=== PATIENT | male | born 1945 | race Caucasian/White ===

== ENCOUNTER 2021-10-16 09:54 | Outpatient (CLI) | payer MEDICARE | END 2021-10-16 09:55 | disposition home or self-care (01) | LOC: CT 09:54 | PROVIDERS: ATTEND Student in an Organized Health Care Education/Training Program | DX: R22.1 Localized swelling, mass and lump, neck (principal); J98.4 Other disorders of lung; C13.9 Malignant neoplasm of hypopharynx, unspecified; C77.0 Secondary and unspecified malignant neoplasm of lymph nodes of head, face and neck; Z90.2 Acquired absence of lung [part of] | CPT/HCPCS: 70491; 71260; 82565 ==

== ENCOUNTER 2021-10-16 11:42 | Outpatient (CLI) | payer MEDICARE ==
[2021-10-16 13:18] LABS: Hemoglobin 15.7 g/dL (13.5-17.5)
[2021-10-16 13:33] LABS: Anion Gap 15 mmol/L (10-20); BUN (Urea Nitrogen) 20 mg/dL (8.4-25.7); Calc. Creatinine Clearance 0 mL/min (70-130); Calcium 9.5 mg/dL (7.8-10.44); Carbon Dioxide 23 mmol/L (23-31); Chloride 106 mmol/L (98-107); Glucose 100 mg/dL (83-110); Potassium 4.6 mmol/L (3.5-5.1); Sodium 139 mmol/L (136-145)
[2021-10-18 00:05] LABS: SARS-CoV-2 PCR by NAA Not Detected (NotDetected)
== END 2021-10-16 11:43 | disposition home or self-care (01) ==
LOC: LABBT 11:42
PROVIDERS: ATTEND Student in an Organized Health Care Education/Training Program
DX: Z01.818 Encounter for other preprocedural examination (principal); R22.1 Localized swelling, mass and lump, neck; J38.7 Other diseases of larynx; J38.3 Other diseases of vocal cords; Z85.118 Personal history of other malignant neoplasm of bronchus and lung; Z20.822 Contact with and (suspected) exposure to COVID-19
CPT/HCPCS: 80048; 85014; 85018; 93005; U0003; U0005; 70491; 71260; 82565; 93010

== ENCOUNTER 2021-10-21 06:45 | Day surgery (SDC) | payer MEDICARE ==
[2021-10-20 09:25] VITALS: BMI 25.0
[2021-10-21] MEDS ORDERED: Fentanyl 100 MCG/2 ML VIAL ONE (07:23)
[2021-10-21] MEDS ORDERED: Lidocaine 1% MPF 2 ML VIAL ONE (07:29)
[2021-10-21] MEDS ORDERED: EPINEPHrine 1 MG/ML AMP ONE (07:57)
[2021-10-21] MEDS ORDERED: Acetaminophen 500 MG TAB ONE (08:07)
[2021-10-21] MEDS ORDERED: Lidocaine 1% PF 5 ML VIAL ONE (08:46)
[2021-10-21] MEDS ORDERED: Ondansetron PF 4 MG/2 ML Vial ONE (08:46)
[2021-10-21] MEDS ORDERED: Dexamethasone 20 MG/5 ML VIAL ONE (08:46)
[2021-10-21] MEDS ORDERED: Rocuronium Bromide 10 MG/ML (10ML VIAL) ONE (08:46)
[2021-10-21] MEDS ORDERED: Succinylcholine 200 MG/10 ml SYRINGE FS ONE (08:46)
[2021-10-21] MEDS ORDERED: PROPOFOL 200 MG/20 ML VIAL ONE (08:46)
[2021-10-21] MEDS ORDERED: Labetalol HCl 100 MG/20 ML VIAL ONE (09:35)
== END 2021-10-21 11:22 | disposition home or self-care (01) ==
LOC: SDC 06:45
PROVIDERS: ATTEND Student in an Organized Health Care Education/Training Program
PROC: 0DJ08ZZ Inspection of Upper Intestinal Tract, Via Natural or Artificial Opening Endoscopic (ICD-10-PCS; principal; 2021-10-21)
PROC: 0CBS8ZX Excision of Larynx, Via Natural or Artificial Opening Endoscopic, Diagnostic (ICD-10-PCS; 2021-10-21)
PROC: 07923ZX Drainage of Left Neck Lymphatic, Percutaneous Approach, Diagnostic (ICD-10-PCS; 2021-10-21)
DX: C32.3 Malignant neoplasm of laryngeal cartilage (principal); R22.1 Localized swelling, mass and lump, neck; I10 Essential (primary) hypertension; I48.91 Unspecified atrial fibrillation; F10.11 Alcohol abuse, in remission; Z85.118 Personal history of other malignant neoplasm of bronchus and lung; Z87.891 Personal history of nicotine dependence; Z79.899 Other long term (current) drug therapy; Z88.8 Allergy status to other drugs, medicaments and biological substances; Z90.2 Acquired absence of lung [part of]
CPT/HCPCS: 88173; 88305; 88341; 88342; J0171; J1100; J2405; J2704; J3010

== ENCOUNTER 2023-09-01 13:18 | Outpatient (CLI) | payer MEDICARE | END 2023-09-01 13:19 | disposition home or self-care (01) | LOC: BICULT 13:18 | PROVIDERS: ATTEND Urology | DX: N40.1 Benign prostatic hyperplasia with lower urinary tract symptoms (principal); N32.3 Diverticulum of bladder; R33.8 Other retention of urine; N28.1 Cyst of kidney, acquired | CPT/HCPCS: 76770 ==

== ENCOUNTER 2023-10-28 19:14 | Emergency (ER) | payer MEDICARE | END 2023-10-28 21:37 | disposition home or self-care (01) | LOC: ERS 19:14 | DX: T83.091A Other mechanical complication of indwelling urethral catheter, initial encounter (principal); I10 Essential (primary) hypertension | CPT/HCPCS: 51102; 99283 ==

== ENCOUNTER 2023-11-09 15:43 | Outpatient (CLI) | payer MEDICARE ==
[2023-11-09 17:16] LABS: Hematocrit 41.3 % (38.8-50.0); Hemoglobin 13.5 g/dL (13.5-17.5); Mean Corpuscular HGB CONC 32.7 g/dL (32.0-36.0); Mean Corpuscular Hemoglobin 29.7 pg (27.0-33.0); Mean Platelet Volume 9.7 fl (7.4-10.4); Platelet Count 186 10x3/uL (150-450); RBC Distribution Width 14.8 % (11.5-14.5); Red Blood Cell (RBC) Count 4.54 10x6/uL (4.32-5.72); White Blood Cell (WBC) Count 5.5 10x3/uL (3.5-10.5)
[2023-11-09 17:28] LABS: PTT 29.3 sec (22.0-33.0)
[2023-11-09 17:31] LABS: Anion Gap 16 mmol/L (10-20); BUN (Urea Nitrogen) 36 mg/dL (8.4-25.7); Calc. Creatinine Clearance 0 mL/min (70-130); Calcium 8.7 mg/dL (7.8-10.44); Carbon Dioxide 20 mmol/L (23-31); Chloride 113 mmol/L (98-107); Estimated GFR 37; Glucose 97 mg/dL (83-110); Potassium 4.5 mmol/L (3.5-5.1); Sodium 144 mmol/L (136-145)
== END 2023-11-09 15:44 | disposition home or self-care (01) ==
LOC: LABBT 15:43
PROVIDERS: ATTEND Urology
DX: Z01.818 Encounter for other preprocedural examination (principal); Z12.5 Encounter for screening for malignant neoplasm of prostate; I10 Essential (primary) hypertension; C32.9 Malignant neoplasm of larynx, unspecified; E21.3 Hyperparathyroidism, unspecified; R97.20 Elevated prostate specific antigen [PSA]; F10.11 Alcohol abuse, in remission; N32.3 Diverticulum of bladder; N40.1 Benign prostatic hyperplasia with lower urinary tract symptoms; R33.8 Other retention of urine; N28.1 Cyst of kidney, acquired; Z87.891 Personal history of nicotine dependence; Z85.118 Personal history of other malignant neoplasm of bronchus and lung
CPT/HCPCS: 80048; 85027; 85610; 85730

== ENCOUNTER 2023-11-17 09:52 | Observation (INO) | payer MEDICARE, OTHER ==
[2023-11-17] MEDS ORDERED: Vancomycin 1 GM/200 ML (FROZEN) BAG ONE (10:43)
[2023-11-17] MEDS ORDERED: fentaNYL PF 100 MCG/2 ML SYRINGE ONE ×3 (12:37→15:23)
[2023-11-17] MEDS ORDERED: PROPOFOL 20 ML ONE (12:37)
[2023-11-17] MEDS ORDERED: Lidocaine 2% PF 5 ML VIAL ONE (12:38)
[2023-11-17] MEDS ORDERED: Midazolam HCl 2 mg/2 ml Vial ONE (12:39)
[2023-11-17] MEDS ORDERED: Rocuronium Bromide 10 MG/ML (10ML VIAL) ONE (12:43)
[2023-11-17] MEDS ORDERED: Ketorolac Tromethamine 30 MG (1 mL) VIAL ONE (13:06)
[2023-11-17] MEDS ORDERED: Ondansetron PF 4 MG/2 ML Vial ONE ×2 (13:06→15:59)
[2023-11-17] MEDS ORDERED: Labetalol HCl 100 MG/20 ML VIAL ONE (13:06)
[2023-11-17] MEDS ORDERED: Phenylephrine 10 MG/ML VIAL ONE (13:09)
[2023-11-17] MEDS ORDERED: Metoprolol Tartrate 5 MG (5 mL) VIAL ONE (13:15)
[2023-11-17] MEDS ORDERED: NOREPINEPHRINE 8 MG/250 ML-D5W 250 ML ONE ×2 (13:22→13:23)
[2023-11-17] MEDS ORDERED: Esmolol 100 MG/10 ML VIAL ONE (13:28)
[2023-11-17] MEDS ORDERED: SUGAMMADEX SODIUM 200 MG/2 ML VIAL ONE (14:31)
[2023-11-17] MEDS ORDERED: HYDROcodone/Acetaminophen 5/325 mg Tablet PO PRN ×2 (14:50)
[2023-11-17] MEDS ORDERED: Morphine 2 MG/ML VIAL SLOW IVP PRN (14:50)
[2023-11-17] MEDS ORDERED: Promethazine HCl 25 MG/ML VIAL IM PRN (14:50)
[2023-11-17] MEDS ORDERED: Ondansetron PF 4 MG/2 ML Vial IVP PRN (14:50)
[2023-11-17] MEDS ORDERED: Zolpidem Tartrate 5 MG TAB PO PRN (14:50)
[2023-11-17] MEDS ORDERED: Ondansetron HCl/PF 4 MG/2 ML Vial IVP PRN (14:50)
[2023-11-17] MEDS ORDERED: diphenhydrAMINE 50 MG/ML VIAL IVP PRN (14:50)
[2023-11-17] MEDS ORDERED: hydrALAZINE 20 MG/ML VIAL SLOW IVP PRN (14:50)
[2023-11-17] MEDS ORDERED: Mag-Al 1200 mg/1200 mg/30 ML UDCUP PO PRN (14:50)
[2023-11-17 15:42] LABS: #Monocytes 0.1 thou/uL (0.11-0.59); #Neutrophils 8.7 thou/uL (1.40-6.50); %Basophils 0.2 % (0.0-1.0); %Eosinophils 0.2 % (0.0-10.0); %Monocytes 1.2 % (0.0-10.0); Hematocrit 44.3 % (42.0-52.0); Hemoglobin 14.7 g/dL (14.0-18.0); Mean Corpuscular HGB CONC 33.2 g/dL (32.0-36.0); Mean Corpuscular Hemoglobin 30.6 pg (27.0-31.0); Mean Corpuscular Volume 92.1 fl (78.0-98.0); Mean Platelet Volume 9.6 fL (7.4-10.4); Platelet Count 193 10x3/uL (130-400); RBC Distribution Width 14.6 % (11.5-14.5); Red Blood Cell (RBC) Count 4.81 mill/uL (4.70-6.10); White Blood Cell (WBC) Count 9.1 10x3/uL (4.8-10.8)
[2023-11-17 16:14] LABS: Anion Gap 14 mmol/L (10-20); BUN (Urea Nitrogen) 22 mg/dL (8.4-25.7); Calc. Creatinine Clearance 51 mL/min (70-130); Calcium 8.6 mg/dL (7.8-10.44); Carbon Dioxide 19 mmol/L (23-31); Chloride 110 mmol/L (98-107); Estimated GFR 56; Glucose 152 mg/dL (83-110); Potassium 3.6 mmol/L (3.5-5.1); Sodium 139 mmol/L (136-145)
[2023-11-17] MEDS ORDERED: Promethazine HCl 25 MG/ML VIAL ONE (16:16)
[2023-11-17] MEDS ORDERED: Digoxin 0.5 MG/2 ML AMP ONE (18:44)
[2023-11-17] MEDS ORDERED: fentaNYL 50 mcg/mL 1 mL Vial ONE (19:59)
[2023-11-17] MEDS ORDERED: Tamsulosin HCl 0.4 MG CAP ONE (20:43)
[2023-11-17] MEDS ORDERED: Phenazopyridine HCl 100 MG TAB ONE (20:43)
[2023-11-17] MEDS ORDERED: Hyoscyamine SL 0.125 MG TAB ONE (20:44)
[2023-11-17] MEDS ORDERED: Famotidine/PF 20 mg/2ml Vial ONE (20:46)
[2023-11-17] MEDS ORDERED: Famotidine/PF 20 mg/2ml Vial SLOW IVP SCH (21:00)
[2023-11-17] MEDS: Hyoscyamine SL 0.125 MG TAB SL SCH (21:03)
[2023-11-17] MEDS: Sodium Chloride 0.9% 1,000 ML IV SCH (21:03)
[2023-11-17] MEDS: Phenazopyridine HCl 100 MG TAB PO SCH (21:03)
[2023-11-17] MEDS: Tamsulosin HCl 0.4 MG CAP PO SCH (21:04)
[2023-11-17] MEDS: Famotidine 20 MG TAB PO SCH (21:04)
[2023-11-17] MEDS: Docusate 100 MG CAP PO SCH (21:07)
[2023-11-17] MEDS: Meropenem 1 GM in Sodium Chloride 0.9% 100 ML IVPB SCH ×3 (21:29→21:50)
[2023-11-17 23:33] VITALS: BMI 26.6
[2023-11-17] MEDS ORDERED: Meropenem 1 GM in Sodium Chloride 0.9% 100 ML IVPB SCH (23:59)
[2023-11-18 05:09] VITALS: TEMP 97.8
[2023-11-18 05:24] LABS: #Monocytes 0.6 thou/uL (0.11-0.59); #Neutrophils 8.7 thou/uL (1.40-6.50); %Basophils 0.2 % (0.0-1.0); %Eosinophils 0.3 % (0.0-10.0); %Lymphocytes 6.5 % (21.0-51.0); %Monocytes 6.3 % (0.0-10.0); %Neutrophils 86.4 % (42.0-75.0); Mean Corpuscular HGB CONC 32.7 g/dL (32.0-36.0); Mean Corpuscular Hemoglobin 30.5 pg (27.0-31.0); Mean Corpuscular Volume 93.4 fl (78.0-98.0); Mean Platelet Volume 9.7 fL (7.4-10.4); Platelet Count 166 10x3/uL (130-400); RBC Distribution Width 14.9 % (11.5-14.5); Red Blood Cell (RBC) Count 3.77 mill/uL (4.70-6.10); White Blood Cell (WBC) Count 10.1 10x3/uL (4.8-10.8)
[2023-11-18 05:29] LABS: Hematocrit 35.2 % (42.0-52.0); Hemoglobin 11.5 g/dL (14.0-18.0)
[2023-11-18 05:37] LABS: Anion Gap 10 mmol/L (10-20); BUN (Urea Nitrogen) 24 mg/dL (8.4-25.7); Calc. Creatinine Clearance 46 mL/min (70-130); Calcium 7.6 mg/dL (7.8-10.44); Carbon Dioxide 20 mmol/L (23-31); Chloride 114 mmol/L (98-107); Estimated GFR 46; Glucose 103 mg/dL (83-110); Potassium 4.1 mmol/L (3.5-5.1); Sodium 140 mmol/L (136-145)
[2023-11-18] MEDS: Losartan 25 MG TAB PO SCH (08:48)
[2023-11-18] MEDS: Dutasteride 0.5 MG CAP PO SCH (08:49)
[2023-11-18] MEDS ORDERED: Non-Formulary Item 1 EACH (Olmesartan/Hydrochlorothiazide [Olmesartan-Hctz 20-12.5 Mg Tab PO SCH (09:00)
[2023-11-18] MEDS: Polyethylene Glycol 3350 17 GM Packet PO SCH (09:02)
[2023-11-18] MEDS: Hydrochlorothiazide 25 MG TAB PO SCH (09:02)
[2023-11-18] MEDS ORDERED: Meropenem 1 GM in Sodium Chloride 0.9% 100 ML IVPB SCH (17:00)
[2023-11-19] MEDS ORDERED: Famotidine 20 MG TAB PO SCH (09:00)
== END 2023-11-18 13:47 | disposition home or self-care (01) ==
LOC: SDC 09:52 → IMCU/EMU 15:49 → INTOOBSV 15:49
PROVIDERS: ADMIT Urology; ATTEND Urology
PROC: 0VT08ZZ Resection of Prostate, Via Natural or Artificial Opening Endoscopic (ICD-10-PCS; principal; 2023-11-17)
DX: N40.1 Benign prostatic hyperplasia with lower urinary tract symptoms (principal); R33.9 Retention of urine, unspecified; I48.0 Paroxysmal atrial fibrillation; C32.9 Malignant neoplasm of larynx, unspecified; E21.3 Hyperparathyroidism, unspecified; R97.21 Rising PSA following treatment for malignant neoplasm of prostate; F19.11 Other psychoactive substance abuse, in remission; N32.3 Diverticulum of bladder; R73.9 Hyperglycemia, unspecified; E03.9 Hypothyroidism, unspecified; N28.1 Cyst of kidney, acquired; I11.0 Hypertensive heart disease with heart failure; I50.30 Unspecified diastolic (congestive) heart failure; I44.0 Atrioventricular block, first degree; Z79.899 Other long term (current) drug therapy; Z87.891 Personal history of nicotine dependence; Z90.2 Acquired absence of lung [part of]; Z85.118 Personal history of other malignant neoplasm of bronchus and lung; Z88.8 Allergy status to other drugs, medicaments and biological substances
CPT/HCPCS: 52601; 80048 ×2; 85025 ×2; 86850; 86900; 86901; 93005; A4333; J3010; J3370; 36415; 88305; 93010; J1160; J1885; J2001; J2185; J2250; J2371; J2405; J2550; J2704; J3490; J7050; S0028